=== PATIENT | male | born 1990 | race Caucasian/White ===

== ENCOUNTER 2017-04-20 12:08 | Emergency (ER) | payer SELFPAY ==
[~2017-04-20] VITALS: Ht 185.4 cm; Wt 93.2 kg
[~2017-04-20 12:08] MED LIST: DEMEROL 50M50 MG/TAB PO; NO HOME MEDICATIONS; NORCO 325 MG-51 TAB PO; PHENERGAN 25 TA25 MG PO; PROMETHAZINE12.5 M5 PO; ULTRAM50 MG
[2017-04-20 12:13] VITALS: TEMP 98
[2017-04-20] MEDS ORDERED: PERCOCET 325 MG1 TA2 PO (13:18)
[2017-04-20 13:40] VITALS: BP 145/80; PULSE 58
== END 2017-04-20 13:41 | disposition home or self-care (01) ==
LOC: COL.ER 12:08
DX: T23.202A Burn of second degree of left hand, unspecified site, initial encounter (principal); T22.112A Burn of first degree of left forearm, initial encounter; T20.17XA Burn of first degree of neck, initial encounter; T26.01XA Burn of right eyelid and periocular area, initial encounter; T26.02XA Burn of left eyelid and periocular area, initial encounter; T31.0 Burns involving less than 10% of body surface; Z23 Encounter for immunization; X19.XXXA Contact with other heat and hot substances, initial encounter
CPT/HCPCS: J1885; J2270; J2405; J7030